=== PATIENT | male | born 1965 | race Caucasian/White ===

== ENCOUNTER 2023-04-28 07:57 | Day surgery (SDC) | payer OTHER, SELFPAY ==
[2023-04-28] VITALS (13 sets, daily range): BP systolic 103–135; BP diastolic 62–91; PULSE 58–87; RESP 12–16; TEMP 36.4–37; O2SAT 92–97; BMI 27.6
[2023-04-28] MEDS: SODIUM CHLORIDE 0.9 % (FLUSH) 10 ML SYRINGE IVF (08:40)
[2023-04-28] MEDS: LACTATED RINGERS 1000 ML 1,000 ML 100 ML IV ×2 (08:40→10:10)
--- NOTE | 2023-04-28 09:12 | W.PM.H&PU ---
History & Physical Update History & Physical Update H&P Reviewed and patient assessed: No changes noted
[2023-04-28] MEDS: CEFAZOLIN 2 GM INJ IVP (09:53)
[2023-04-28] MEDS: BUPIVACAINE 0.25% 30 ML INJECTION (11:28)
[2023-04-28] MEDS: MEPERIDINE 25 MG/ML INJ 12.5 MG IVP (11:45)
--- NOTE | 2023-04-28 11:47 | W.ANESCHARGE ---
Anesthesia Charges Start Date/Time Anesthesia Start Date: 04/28/23 Anesthesia Start Time: 09:46 Stop Date/Time Anesthesia Stop Date: 04/28/23 Anesthesia Stop Time: 11:44
[2023-04-28] MEDS: HYDROCODONE-ACETAMIN 5-325 MG 1 TAB PO (12:24)
--- NOTE | 2023-04-28 13:30 | P.GSOP_ITS ---
Operative Note Pre-op diagnosis: 1. right inguinal hernia 2. Umbilical hernia Post-op diagnosis: Same Type of Procedure: Laparoscopic right inguinal hernia repair, open umbilical hernia repair Indications: Patient is a 57-year-old male who presented to clinic with a symptomatic right inguinal hernia and umbilical hernia. Different treatment options were reviewed at length with the patient, please see consultation note for full discussion. Risks and benefits of operative intervention were discussed at length with the patient. Risks included but was not limited to: Bleeding, infection, risk of damage to surrounding structures, possible need for additional procedures, possible need to convert to an open operation and postoperative complications such as pneumonia, pulmonary emboli or CT. All questions and concerns were addressed with the patient agreeing to proceed. Procedure Description: After discussing the risks and benefits of the procedure, the patient signed informed consent.? The operative site was marked and the patient was brought to the operating room and placed on the operating table in supine position.? Care was taken to pad the patient's pressure points.?? The patient was then intubated by anesthesia.?? The operative site was then prepped and draped in the usual sterile fashion.? A time-out was then performed. A curvilinear incision was made below the umbilicus. Dissection was carried down to subcutaneous tissue until the anterior rectus fascia was encountered. This was incised off the midline. The rectus muscles were then retracted exposing the posterior fascia. A space maker port with a dissecting balloon was then introduced. The preperitoneal space was inflated under direct vision. The balloon was then removed and the preperitoneal space insufflated. A 10 mm 30 degree scope was then advanced and the area was surveyed for bleeding. Dissection began on the right side. Adriano's ligament and the pubic bone was exposed medially. Following this dissection was carried out laterally. A direct defect was noted. The sac was dissected free from the cord structures using a combination of sharp and blunt dissection. Once the sac was completely reduced, the cord structures were dissected circumfrentially and a piece of Parietex mesh for the appropriate side was placed into the abdomen. This was positioned around the cord structures. A Tacker was used to attach the mesh medially at Adriano's ligament. Once this was completed the sac was placed on top of the mesh and the preperitoneal space desufflated under direct vision. The ports were removed. The fascia from the infraumbilical port was closed with 0 Vicryl. We then began dissection for the open umbilical hernia repair. Using the p reviously made curvilinear incision dissection was carried down into the subcutaneous tissue using cautery. The hernia sac was encountered and care was taken to not enter it. Dissection was taken down to the fascia, and the umbilical stock was carefully dissected off of the hernia sac. Once the hernia sac was dissected out circumferentially, it was reduced. The fascial edges were then cleared circumferentially. The hernia was 2 cm in size and so the decision was made to use a piece of mesh. A preperitoneal pocket was created using a combination of blunt dissection and cautery. Hemostasis appeared adequate. Once the posterior fascia was clear, a piece of medium Ventralex ST hernia mesh was placed in the preperitoneal space with care to ensure that it laid flat. This was secured into place using 2 0 PDS interrupted sutures. The tails were then trimmed and the fascial opening was closed with a running 0 Vicryl. Local anesthetic was injected into the fascia, skin and subcutaneous tissues. The umbilicus was reapproximated to the fascia. The skin was then closed with running absorbable suture. A sterile dressing was then applied. The skin incisions were closed with absorbable subcuticular suture. Sterile dressings were then applied. The scrotum was examined to ensure that both testicles were down. Instrument sponge and needle counts were correct at the end of the case. l. Findings: Direct hernia right inguinal. Umbilical hernia. Anesthesia: GETA Surgeon: Robyn Desir MD Estimated blood loss (mL): 5 Condition: stable Disposition: same day Date of procedure: 04/28/23
== END 2023-04-28 13:42 | disposition home or self-care (01) ==
PROVIDERS: PCP Family Medicine; Visit Provider Surgery
PROC: (CPT 49650; principal; 2023-04-28 09:30)
PROC: (CPT 49650; 2023-04-28 09:30)
DX: K40.90 Unilateral inguinal hernia, without obstruction or gangrene, not specified as recurrent (principal); K42.9 Umbilical hernia without obstruction or gangrene
CPT/HCPCS: 49650; 49591; 00830; A9270; C1781; J0330; J0665; J0690; J1100; J2175; J2250; J2405; J2704; J2710; J3010; J7120